=== PATIENT | female | born 1970 | race Caucasian/White ===

== ENCOUNTER → 2018-04-01 13:22 | Outpatient (CLI) | payer MEDICAID | END | disposition home or self-care (01) | LOC: D.LABREF 13:22 | DX: N12 Tubulo-interstitial nephritis, not specified as acute or chronic (principal) ==

== ENCOUNTER → 2018-04-27 10:36 | Outpatient (CLI) | payer MEDICAID | END | disposition home or self-care (01) | LOC: D.LABREF 10:36 | DX: N39.0 Urinary tract infection, site not specified (principal) ==

== ENCOUNTER → 2018-07-06 19:10 | Outpatient (CLI) | payer MEDICAID ==
[2018-07-06 20:26] LABS: APPEARANCE CLEAR (CLEAR); BILIRUBIN NEGATIVE (NEGATIVE); COLOR YELLOW (YELLOW); GLUCOSE NEGATIVE (NEGATIVE); KETONE NEGATIVE (NEGATIVE); NITRITE NEGATIVE (NEGATIVE); PROTEIN NEGATIVE (NEGATIVE); SPECIFIC GRAVITY 1.015 (1.005-1.020); UROBILINOGEN NORMAL (NORMAL)
[2018-07-06 20:27] LABS: WHITE CELLS - URINE 0-5 /hpf (0-5)
[2018-07-06 20:28] LABS: BACTERIA FEW /hpf (NONE SEEN); RED CELLS - URINE 0-5 /hpf (0-5)
== END | disposition home or self-care (01) ==
LOC: D.LABREF 19:10
PROVIDERS: Student in an Organized Health Care Education/Training Program
DX: R30.0 Dysuria (principal)